=== PATIENT | female | born 1945 | race Caucasian/White ===

== ENCOUNTER 2018-11-03 10:14 | Outpatient (CLI) | payer MEDICARE, OTHER | END 2018-11-03 10:15 | disposition home or self-care (01) | LOC: RT 10:14 | PROVIDERS: ATTEND Internal Medicine Hematology & Oncology | DX: I49.9 Cardiac arrhythmia, unspecified (principal) | CPT/HCPCS: 93005 ==

== ENCOUNTER 2018-11-11 14:54 | Outpatient (CLI) | payer MEDICARE, OTHER | END 2018-11-11 14:55 | disposition home or self-care (01) | LOC: DI 14:54 | PROVIDERS: ATTEND Internal Medicine Cardiovascular Disease | DX: I49.1 Atrial premature depolarization (principal); I49.3 Ventricular premature depolarization | CPT/HCPCS: 93306 ==

== ENCOUNTER 2019-09-15 09:07 | Outpatient (CLI) | payer MEDICARE, OTHER ==
--- NOTE | 2019-09-15 13:39 | Mammography Report ---
Reason: SCREENING MAMMO Procedure Date: 09/15/2019 Accession Number: [id number] / [id number] Procedure: ASHLEY - Screening Mammo w/Samy CPT Code: FULL RESULT: EXAM: Screening Mammo w/Samy DATE: 09/15/2019 9:54 AM CLINICAL HISTORY: Routine screening TECHNIQUE: (B) - Bilateral CC and MLO views were obtained. COMPARISON: 09/18/2017, 10/06/2012, 05/22/2011 and 02/22/2010 PARENCHYMAL PATTERN: (A) - The breasts demonstrate scattered fibroglandular densities bilaterally. FINDINGS: No significant interval change. There are no suspicious masses, calcifications, or areas of distortion. IMPRESSION: Negative examination. BI-RADS category 1. RECOMMENDATION: (ANNUAL) - Recommend routine annual screening mammography. BI-RADS CATEGORY: (1) - Negative. STANDARD QUALIFYING STATEMENTS: 1. This examination was not reviewed with the aid of Computer-Aided Detection (CAD). 2. A negative or benign imaging report should not preclude biopsy if clinically suspicious findings are present. 3. Dense breasts may obscure an underlying neoplasm. 4. This examination was reviewed with the aid of 3D breast imaging (tomosynthesis).
== END 2019-09-15 09:08 | disposition home or self-care (01) ==
LOC: DI 09:07
DX: Z12.31 Encounter for screening mammogram for malignant neoplasm of breast (principal)
CPT/HCPCS: 77063; 77067

== ENCOUNTER 2020-11-01 20:09 | Outpatient (CLI) | payer MEDICARE, OTHER | END 2020-11-01 20:10 | disposition home or self-care (01) | LOC: COV 20:09 | PROVIDERS: ATTEND Family Medicine | DX: R09.81 Nasal congestion (principal); J34.89 Other specified disorders of nose and nasal sinuses; Z20.828 Contact with and (suspected) exposure to other viral communicable diseases ==

== ENCOUNTER 2021-09-28 09:09 | Outpatient (CLI) | payer MEDICARE, OTHER ==
--- NOTE | 2021-10-04 11:40 | Mammography Report ---
BILATERAL DIGITAL SCREENING MAMMOGRAM 3D/2D: 09/28/2021 CLINICAL: Routine screening. Comparison is made to exams dated: 09/15/2019 mammogram and 09/18/2017 mammogram - [facility]. There are scattered fibroglandular elements in both breasts. No significant masses, calcifications, or other findings are seen in either breast. There has been no significant interval change. IMPRESSION: NEGATIVE There is no mammographic evidence of malignancy. A 1 year screening mammogram is recommended. This exam was interpreted at Station ID: [id number]. NOTE: For mammograms, a report in lay terms will be sent to the patient. Approximately 15% of breast malignancies will not be visualized mammographically. In the management of a palpable breast mass, a negative mammogram must not discourage biopsy of a clinically suspicious lesion. Electronically Signed By: Deo Damon M.D. slc/penrad:10/04/2021 10:33:32 ACR BI-RADS Category 1: Negative 3341F PARENCHYMAL PATTERN: (A) - The breast(s) demonstrate(s) scattered fibroglandular densities. BI-RADS CATEGORY: (1) - 1 RECOMMENDATION: (ANNUAL) - Recommend routine annual screening mammography. [id number] 1 year screening LATERALITY: (B)
== END 2021-09-28 09:10 | disposition home or self-care (01) ==
LOC: DI 09:09
DX: Z12.31 Encounter for screening mammogram for malignant neoplasm of breast (principal)

== ENCOUNTER 2022-04-06 12:37 | Day surgery (SDC) | payer MEDICARE, OTHER ==
[2022-04-06] MEDS ORDERED: LACTATED RINGERS 1,000 ML IV ONE (13:09)
[2022-04-06] MEDS ORDERED: PROPOFOL 500 MG/50 ML 500 MG/50 ML VIAL ONE (13:11)
--- NOTE | 2022-04-06 13:27 | ANESTHESIA ---
Pre-Anesthesia VS, & Labs - Diagnosis screening exam - Procedure colonoscopy Vital Signs: Temp Pulse Resp BP Pulse Ox 37.1 C 66 14 143/75 H 100 04/06/22 13:11 04/06/22 13:11 04/06/22 13:11 04/06/22 13:11 04/06/22 13:11 Height: 5 ft 3 in Weight (kg): 55.7 kg Body Mass Index: 21.7 BMI Classification: Healthy weight - NPO >8 hours - Is Patient ?: No Home Medications and Allergies Ascorbate Calcium [Vitamin C] 1,000 mg PO DAILY 03/08/14 Aspirin [Aspir 81] 81 mg PO DAILY 03/08/14 Calcium Carbonate [Calcium] 1,000 mg PO DAILY 03/08/14 Cod Liver Oil 1 each PO DAILY 03/08/14 Dorzolamide 2% Ophth Drops [Trusopt] 1 drops OPTH BID 03/08/14 Glucosamine Sulfate Dipot Chlr [Glucosamine] 1,000 mg PO BID 03/08/14 Ibuprofen/Diphenhydramine HCl [Advil Pm Liqui-Gels] 1 each PO HS 03/08/14 Multivitamin [Multivitamins] 1 each PO DAILY 03/08/14 Allergies/Adverse Reactions: Allergies Allergy/AdvReac Type Severity Reaction Status Date / Time No Known Drug Allergies Allergy Verified 04/06/22 13:16 Anes History & Medical History - Anesthetic History Anesthesia Complications: reports: No previous complications - Medical History Cardiovascular: reports: None Pulmonary: reports: None Gastrointestinal: reports: None Urinary: reports: None Neuro: reports: None Endocrine/Autoimmune: reports: None Blood Disorders: reports: None Skin: reports: None Smoking Status: Former smoker (quit 40 yeas ago) Psychosocial: reports: Alcohol (one drink per night) History of Cancer?: Yes (Hodgkins lymphoma, s/p chemo ) - Surgical History Gynecologic: reports: Hysterectomy Exam General: Alert, Oriented x3, Cooperative, No acute distress Dental: WNL Mouth Openin Fingerbreadth Neck Mobility: Normal Mallampati classification: II Thyromental Distance: 4-6 cm Mental/Cognitive Status: Alert/Oriented X3, Normal for patient Plan Anesthesia Type: General, Total IV Consent for Procedure(s) Verified and Reviewed: Yes Code Status: Attempt Resuscitation ASA classification: 2-Mild systemic disease Is this case an emergency?: No
[2022-04-06] MEDS ORDERED: PROPOFOL 200 MG/20 ML VIAL IVP ONE (13:38)
--- NOTE | 2022-04-06 13:50 | HISTORY & PHYSICAL EXAMINATION ---
Chief Complaint - Chief Complaint Chief Complaint: here for colon cancer screening History of Present Illness - History Obtained From Records Reviewed: yes History obtained from: pt Exam Limitations: none - History of Present Illness HPI Comment/Other: here for colon cancer screening. 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 Meds/Allgy - Home Medications Home Medications: Ambulatory Orders Medication Instructions Recorded Confirmed Ascorbate Calcium [Vitamin C] 1,000 mg PO DAILY 03/08/14 04/06/22 Aspirin [Aspir 81] 81 mg PO DAILY 03/08/14 04/06/22 Calcium Carbonate [Calcium] 1,000 mg PO DAILY 03/08/14 04/06/22 Cod Liver Oil 1 each PO DAILY 03/08/14 04/06/22 Dorzolamide 2% Ophth Drops 1 drops OPTH BID 03/08/14 04/06/22 [Trusopt] Glucosamine Sulfate Dipot Chlr 1,000 mg PO BID 03/08/14 04/06/22 [Glucosamine] Ibuprofen/Diphenhydramine HCl 1 each PO HS 03/08/14 04/06/22 [Advil Pm Liqui-Gels] Multivitamin [Multivitamins] 1 each PO DAILY 03/08/14 04/06/22 - Allergies Allergies/Adverse Reactions: Allergies Allergy/AdvReac Type Severity Reaction Status Date / Time No Known Drug Allergies Allergy Verified 04/06/22 13:16 Review of Systems - Other Findings Other Findings: 10 pt ros as above otherwise unremarkable Exam - Vital Signs Reviewed Vital Signs: Yes Vital Signs: Vital Signs x48h Temp Pulse Resp BP Pulse Ox 04/06/22 13:11 37.1 C 66 14 143/75 H 100 - Physical Exam General Appearance: positive: No acute distress, Alert Eyes Bilateral: positive: PERRL, EOMI ENT: positive: No signs of dehydration Neck: positive: No JVD Respiratory: positive: No respiratory distress, Breath sounds nml Cardiovascular: positive: Regular rate & rhythm Abdomen: positive: Non-tender, No distention Neurologic/Psychiatric: positive: Oriented x3 Conclusion/Plan - Problem List (1) Colon cancer screening Conclusion/Plan: plan colonscopy. parq held and consent obtained
[2022-04-06] MEDS ORDERED: LACTATED RINGERS 500 ML IV ONE (14:42)
[2022-04-06 14:56] VITALS: BP 101/54
--- NOTE | 2022-04-06 15:30 | ANESTHESIA POST OP EVALUATION ---
Anesthesia Post Eval - Post Anesthesia Eval Vitals: Last Vital Signs Temp 36.3 C L 04/06/22 14:51 Pulse 61 04/06/22 14:51 Resp 16 04/06/22 14:51 BP 101/54 L 04/06/22 14:51 Pulse Ox 95 04/06/22 14:51 CV Function Including HR & BP: Stable Pain Control: Satisfactory Nausea & Vomiting: Negative Mental Status: Baseline Respiratory Status: Airway Patent Hydration Status: Satisfactory Anesthesia Complications: None
== END 2022-04-06 12:38 | disposition home or self-care (01) ==
LOC: SDS 12:37
PROVIDERS: ATTEND Surgery
DX: Z12.11 Encounter for screening for malignant neoplasm of colon (principal); K57.30 Diverticulosis of large intestine without perforation or abscess without bleeding; Z87.891 Personal history of nicotine dependence
CPT/HCPCS: G0121; J7120

== ENCOUNTER 2022-10-10 11:19 | Outpatient (CLI) | payer MEDICARE, OTHER ==
--- NOTE | 2022-10-11 09:43 | Mammography Report ---
BILATERAL DIGITAL SCREENING MAMMOGRAM 3D/2D: 10/10/2022 CLINICAL: Routine screening. Comparison is made to exams dated: 09/28/2021 mammogram, 09/15/2019 mammogram, and 09/18/2017 mammogr am - [facility]. There are scattered areas of fibroglandular density in both breasts (category b / 25%-50% glandular t issue). No significant masses, calcifications, or other findings are seen in either breast. There has been no significant interval change. IMPRESSION: NEGATIVE There is no mammographic evidence of malignancy. A 1 year screening mammogram is recommended. Based on the Tyrer Cuzick model (a risk assessment model) the patients lifetime risk is 1.6% and her 10 year risk is 0.0%. According to the ACR, ACS, and NCCN guidelines, an annual breast MRI exam grace g with mammogram is recommended if the patients lifetime risk is 20% or greater. This exam was interpreted at Station ID: [id number]. NOTE: For mammograms, a report in lay terms will be sent to the patient. Approximately 15% of breast malignancies will not be visualized mammographically. In the management of a palpable breast mass, a negative mammogram must not discourage biopsy of a clinically suspicious lesion. Electronically Signed By: Jammie valentin/andrew:10/10/2022 12:50:22 ACR BI-RADS Category 1: Negative 3341F PARENCHYMAL PATTERN: (A) - The breast(s) demonstrate(s) scattered fibroglandular densities. BI-RADS CATEGORY: (1) - 1 RECOMMENDATION: (ANNUAL) - Recommend routine annual screening mammography. [id number] 1 year screening LATERALITY: (B)
== END 2022-10-10 11:20 | disposition home or self-care (01) ==
LOC: DI 11:19
DX: Z12.31 Encounter for screening mammogram for malignant neoplasm of breast (principal)

== ENCOUNTER 2022-10-11 08:00 | Outpatient (CLI) | payer MEDICARE, OTHER ==
--- NOTE | 2022-10-11 16:32 | XRAY Report ---
PROCEDURE: Knee 3 View RT INDICATIONS: RIGHT KNEE PAIN TECHNIQUE: 3 views of the right knee(s) were acquired. COMPARISON: X-ray right knee, 07/17/2022. MRI right knee, 09/08/2022. FINDINGS: Bones: No fractures or dislocations. No suspicious bony lesions. There is severe tricompartmental k nee joint degeneration. Joint space is severely narrowed in the medial compartment weightbearing. Soft tissues: Small joint effusion. No suspicious soft tissue calcifications. IMPRESSION: Severe osteoarthritis. Small knee joint effusion. Reviewed by: Ivory Robles MD on 10/11/2022 4:31 PM PST Approved by: Ivory Robles MD on 10/11/2022 4:31 PM PST Station ID: [id number]
== END 2022-10-11 23:59 | disposition home or self-care (01) ==
LOC: DI.WOS 08:00
PROVIDERS: ATTEND Physician Assistant Surgical
DX: M17.11 Unilateral primary osteoarthritis, right knee (principal); M25.461 Effusion, right knee

== ENCOUNTER 2023-10-04 13:27 | Outpatient (CLI) | payer MEDICARE, OTHER ==
--- NOTE | 2023-10-07 12:16 | Mammography Report ---
BILATERAL DIGITAL SCREENING MAMMOGRAM 3D/2D: 10/04/2023 CLINICAL: Routine screening. Comparison is made to exams dated: 10/10/2022 mammogram, 09/28/2021 mammogram, 09/15/2019 mammogram, and 09/18/2017 mammogram - [facility]. There are scattered areas of fibroglandular density in both breasts (category b / 25%-50% glandular t issue). There is a possible developing irregular equal density asymmetry with a spiculated margin in the left breast at 12 o'clock middle depth. This is more prominent. No other significant masses, calcifications, or other findings are seen in either breast. IMPRESSION: INCOMPLETE: NEEDS ADDITIONAL IMAGING EVALUATION The possible developing irregular equal density asymmetry in the left breast is indeterminate. Addit ional views with possible ultrasound are recommended. Based on the Tyrer Cuzick model (a risk assessment model) the patients lifetime risk is 1.4% and her 10 year risk is 0.0%. According to the ACR, ACS, and NCCN guidelines, an annual breast MRI exam grace g with mammogram is recommended if the patients lifetime risk is 20% or greater. This exam was interpreted at Station ID: [id number]. NOTE: For mammograms, a report in lay terms will be sent to the patient. Approximately 15% of breast malignancies will not be visualized mammographically. In the management of a palpable breast mass, a negative mammogram must not discourage biopsy of a clinically suspicious lesion. Electronically Signed By: Susu veras/andrew:10/04/2023 16:02:57 ACR BI-RADS Category 0: Incomplete 3340F PARENCHYMAL PATTERN: (A) - The breast(s) demonstrate(s) scattered fibroglandular densities. BI-RADS CATEGORY: (0) - 0 Mammo and [place] [id number] Immediate follow-up LATERALITY: (B)
== END 2023-10-04 13:28 | disposition home or self-care (01) ==
LOC: DI 13:27
DX: Z12.31 Encounter for screening mammogram for malignant neoplasm of breast (principal); R92.8 Other abnormal and inconclusive findings on diagnostic imaging of breast; R92.323 Mammographic fibroglandular density, bilateral breasts

== ENCOUNTER 2023-10-25 08:10 | Outpatient (CLI) | payer MEDICARE, OTHER ==
--- NOTE | 2023-10-28 11:49 | Mammography Report ---
UNILATERAL LEFT DIGITAL DIAGNOSTIC MAMMOGRAM 3D/2D: 10/25/2023 CLINICAL: Patient returns today to evaluate a focal asymmetry in the left breast. Comparison is made to exams dated: 10/04/2023 mammogram, 10/10/2022 mammogram, 09/28/2021 mammogram, 09/15/2019 mammogram, and 09/18/2017 mammogram - [facility]. There are scattered areas of fibroglandular density in the left breast (category b / 25%-50% glandula r tissue). The focal asymmetry seen on recent screening mammogram did not persist with additional imaging and is consistent with superimposition of normal breast tissue. No significant masses, calcifications, or other findings are seen in the breast. IMPRESSION: NEGATIVE Superimposition of normal breast tissue. No mammographic evidence of malignancy. A 1 year screening mammogram is recommended. Findings and recommendations were conveyed to the patient during today's evaluation. Based on the Tyrer Cuzick model (a risk assessment model) the patients lifetime risk is 1.4% and her 10 year risk is 0.0%. According to the ACR, ACS, and NCCN guidelines, an annual breast MRI exam grace g with mammogram is recommended if the patients lifetime risk is 20% or greater. This exam was interpreted at Station ID: [id number]. NOTE: For mammograms, a report in lay terms will be sent to the patient. Approximately 15% of breast malignancies will not be visualized mammographically. In the management of a palpable breast mass, a negative mammogram must not discourage biopsy of a clinically suspicious lesion. Electronically Signed By: Mikaela Rose M.D., PH.D eb/:10/25/2023 09:08:18 ACR BI-RADS Category 1: Negative 3341F PARENCHYMAL PATTERN: (A) - The breast(s) demonstrate(s) scattered fibroglandular densities. BI-RADS CATEGORY: (1) - 1 Mammogram [id number] 1 year screening LATERALITY: (B)
== END 2023-10-25 08:11 | disposition home or self-care (01) ==
LOC: DI 08:10
PROVIDERS: ATTEND Internal Medicine
DX: R92.2 Inconclusive mammogram (principal); R92.322 Mammographic fibroglandular density, left breast